=== PATIENT | female | born 1985 | race Asian ===

== ENCOUNTER 2016-12-29 10:00 | Inpatient (IN) | payer BC, OTHER ==
[~2016-12-29 10:00] MED LIST: AMPICILLIN - 2 GM in SODIUM CHLORIDE 100 ML IVPB ONE; CITRIC ACID/SODIUM CITRATE 30 ML UNIT-DOSE CUP PO ONE; ELECTROLYTE-148 SOLN 500 ML IV ONE
[2016-12-29] MEDS ORDERED: ELECTROLYTE-148 SOLN 1,000 ML IV SCH ×2 (10:30→14:45)
[2016-12-29] MEDS ORDERED: TUBERCULIN PPD 5 TU/0.1ML SYRINGE (IN PATIENT USE ONLY) ID ONE (11:00)
[2016-12-29 11:03] VITALS: BMI 35.4
--- NOTE | 2016-12-29 11:04 | HP ---
Past Medical History - Admission Chief Complaint: Labor History of Present Illness: 31 yo EDC 01/05/17 ega 39 week admitted due to labor no ROM bleeding pt with GBS positive and hypothyroid x2 Spont ab x 1 History Source: Patient - Past Medical History ...: 4 ...Para: 2 ...Spon : 1 Endocrine: Yes: Hypothyroidism (on synthroid 50mcg/day throughout ) - Past Surgical History Past Surgical History: Yes: None Hx Myomectomy: No Hx Transabdominal Cerclage: No - Smoking History Smoking history: Never smoked Have you smoked in the past 12 months: No - Alcohol/Substance Use Hx Alcohol Use: No Home Medications - Allergies Allergies/Adverse Reactions: Allergies Allergy/AdvReac Type Severity Reaction Status Date / Time No Known Allergies Allergy Verified 06/29/14 21:23 - Home Medications Home Medications: Ambulatory Orders Levothyroxine Sodium [Unithroid] 50 mcg PO DAILY 05/11/15 Vit/Iron Fumarate/FA [ Tablet] 1 tablet PO DAILY 05/11/15 Review of Systems - Review of Systems Constitutional: reports: No Symptoms Eyes: reports: No Symptoms HENT: reports: No Symptoms Neck: reports: No Symptoms Cardiovascular: reports: No Symptoms Respiratory: reports: No Symptoms Gastrointestinal: reports: No Symptoms Genitourinary: reports: No Symptoms Breasts: reports: No Symptoms Reported Musculoskeletal: reports: No Symptoms Integumentary: reports: No Symptoms Neurological: reports: No Symptoms Endocrine: reports: No Symptoms Hematology/Lymphatic: reports: No Symptoms Psychiatric: reports: No Symptoms Physical Exam - Maternity Constitutional: Yes: Well Nourished, No Distress, Obese - Abdominal Exam/OB Fundal Height: 40 Number of Fetuses: Single Presentation: Vertex Contractions: Yes Regularity: Regular Category: I Accelerations: Non-Uniform - Vaginal Exam/OB Dilatation (cm): 5-6 Effacement (%): 80 Amniotic Membrane Status: Intact Presentation: Vertex/Position - Physical Exam Musculoskeletal: Yes: WNL Edema: No Integumentary: Yes: WNL Hemorrhage Risk Assessment - Risk Factors Risk Score: 0 Risk Level: Low Risk Problem List - Problems (1) Term Code(s): Z34.80 - ENCOUNTER FOR SUPRVSN OF NORMAL , UNSP TRIMESTER (2) Labor established Code(s): WWR8452 - Assessment/Plan iup at 39 weeks Cat 1 Labor obesity Plan admit to LD continue present management
[2016-12-29 11:05] LABS: BASOPHIL 0.6 % (0-2.0); EOSINOPHIL 0.2 % (0-4.5); MCH 25.4 pg (25.7-33.7); MCHC 31.9 g/dl (32.0-36.0); MEAN CELL VOLUME 79.6 fl (80-96); MEAN PLT VOLUME 9.2 fl (7.5-11.1); NEUTROPHILS 78.8 % (42.8-82.8); PLATELET COUNT 206 K/MM3 (134-434); RDW 15.1 % (11.6-15.6); WHITE BLOOD COUNT 12.3 K/mm3 (4.0-10.0)
[2016-12-29 11:25] LABS: INR 0.92 (0.82-1.09); PROTHROMBIN TIME (PATIENT) 10.1 SEC (9.98-11.88)
[2016-12-29 11:27] LABS: ANION GAP 10 (8-16); CALCIUM 8.6 mg/dL (8.5-10.1); CO2 23 mmol/L (21-32); CREATININE 0.7 mg/dL (0.55-1.02); GLUCOSE,RANDOM 76 mg/dL (74-106)
[2016-12-29 11:28] LABS: ACTIVATED PTT 24.8 SECONDS (26.9-34.4)
[2016-12-29] MEDS: AMPICILLIN - 1 GM in SODIUM CHLORIDE 100 ML IVPB SCH ×2 (14:00→18:32)
[2016-12-29] MEDS ORDERED: METHYLERGONOVINE MALEATE 0.2 MG/1 ML AMP IM PRN (14:41)
[2016-12-29] MEDS ORDERED: WITCH HAZEL 50% (TUCKS) 40 PAD/JAR PAD TP PRN (14:41)
[2016-12-29] MEDS ORDERED: BENZOCAINE 20% 57 GM BOTTLE TP PRN (14:41)
[2016-12-29] MEDS ORDERED: IBUPROFEN 600 MG TABLET (FP) PO PRN (14:41)
[2016-12-29] MEDS ORDERED: ACETAMINOPHEN 325 MG TABLET (FP) PO PRN (14:41)
[2016-12-29] MEDS ORDERED: BISACODYL 10 MG SUPP.RECT RC PRN (14:41)
[2016-12-29] MEDS ORDERED: BENZOCAINE 28 GM HEMORRHOIDAL OINTMENT TP PRN (14:41)
[2016-12-29] MEDS ORDERED: D5W-LR W/ 20 UNITS OXYTOCIN 1,000 ML IV SCH (14:45)
[2016-12-29] MEDS ORDERED: FENTANYL/BUPIVACAINE/NS/PF - PCEA - 50 ML DISP.SYRIN EP SCH (15:00)
--- NOTE | 2016-12-29 15:06 | PN ---
Ante-Partal Exam - Subjective Subjective: Pt sp epidural Vital Signs: Vital Signs Temperature 98.0 F 12/29/16 14:00 Pulse Rate 70 12/29/16 14:00 Respiratory Rate 18 12/29/16 14:00 Blood Pressure 124/53 12/29/16 14:00 O2 Sat by Pulse Oximetry (%) Bleeding: No Headache: No Visual changes: No Right upper quadrant pain: No - Contractions Contractions: Yes - Exam during Labor Category: I Monitor Accelerations: Present Monitor Decelerations: Early Exam: Vaginal Dilatation (cm): 8 Effacement (%): 100 Amniotic Membrane Status: Ruptured Amniotic Fluid: Clear Presentation: Vertex Station: -1 - Assessment/Plan Assessment/Plan: iup at 39 weeks labor Plan anticipate vaginal delivery
[2016-12-29 17:02] LABS: ARTERIAL BLD GAS O2 SATURATION 25.7 % (90-98.9); ARTERIAL BLOOD GAS BASE EXCESS -0.6 meq/l (-2-2); ARTERIAL BLOOD GAS HCO3 26.3 meq/L (22-26)
[2016-12-29 17:04] LABS: ARTERIAL BLOOD GAS PO2 18.2 mmHg (80-100); PT. ON O2? NO
[2016-12-29 17:05] LABS: VENOUS BLOOD GAS HCO3 23.3 meq/L (19-25); VENOUS PH 7.39 (7.32-7.42)
--- NOTE | 2016-12-30 06:34 | PN ---
Delivery - Delivery Vaginal Delivery: No Problems Type of Anesthesia: Epidural Episiotomy/Laceration: 1st degree EBL (cc): 300 Delivery, Single - Stages of Labor Date 1st Stage Initiatied: 12/29/16 Time 1st Stage Initiated: 06:00 Date 2nd Stage Initiated: 12/29/16 Time 2nd Stage Initiated: 16:00 Date of Delivery: 12/29/16 Time of Delivery: 16:21 Time Placenta Delivered: 16:30 - Condition of Infant Branch Office Manager/Lens Edger Present: No Gender: Male Weight: 6 lb 10 oz Position: Left, OA Total Hours ROM (Hrs/Mins): 07/07 - 1 Minute Total Score: 9 5 Minutes Total Score: 9 - Feeding Plan Initial Plan: Elected not to breastfeed exclusively throughout hospitalization
[2016-12-30 08:04] LABS: BASOPHIL 0.3 % (0-2.0); EOSINOPHIL 0.6 % (0-4.5); MCH 25.6 pg (25.7-33.7); MCHC 31.8 g/dl (32.0-36.0); MEAN CELL VOLUME 80.7 fl (80-96); MEAN PLT VOLUME 9.4 fl (7.5-11.1); NEUTROPHILS 73.6 % (42.8-82.8); PLATELET COUNT 196 K/MM3 (134-434); RDW 15.1 % (11.6-15.6); WHITE BLOOD COUNT 13.2 K/mm3 (4.0-10.0)
[2016-12-30] MEDS: PRENATAL VITAMINS W/ FOLIC ACID TABLET (FP) PO SCH (09:25)
[2016-12-30] MEDS ORDERED: DIPHTH,PERTUSS(ACELL),TET 0.5 ML DISP.SYRIN IM ONE (10:00)
[2016-12-30] MEDS ORDERED: SENNOSIDES/DOCUSATE COMBO (SENNA PLUS) TABLET (UD) PO PRN (22:00)
--- NOTE | 2016-12-31 05:21 | PN ---
Post Note - Post Date of Delivery: 12/29/16 Post Day: 1 Vital Signs: Vital Signs - 24 hr 12/30/16 12/30/16 12/30/16 05:50 07:51 13:11 Temperature 98.8 F 98.1 F 98.6 F Pulse Rate 75 84 85 Respiratory 18 20 20 Rate Blood Pressure 105/52 92/55 96/63 12/30/16 22:00 Temperature 98.7 F Pulse Rate 78 Respiratory 20 Rate Blood Pressure 110/60 Labs: Laboratory Results - last 24 hr 12/30/16 06:00 WBC 13.2 H RBC 4.67 Hgb 12.0 Hct 37.7 MCV 80.7 MCH 25.6 L MCHC 31.8 L RDW 15.1 Plt Count 196 MPV 9.4 Neutrophils % 73.6 Lymphocytes % 18.5 D Monocytes % 7.0 Eosinophils % 0.6 D Basophils % 0.3 - Subjective Subjective: No Complaints - Objective Afebrile: No Breast: Not engorged Abdomen: Soft, Non-tender Uterus: Fundus firm, Non-tender Vagina: Scant lochia Extremities: Non-tender - Assessment/Plan (1) Term Assessment: S/P Normal Plan: Routine Care
--- NOTE | 2016-12-31 05:22 | DS ---
Physical Exam-GARNETT FEEDER Vital Signs: Vital Signs Temperature 98.7 F 12/30/16 22:00 Pulse Rate 78 12/30/16 22:00 Respiratory Rate 20 12/30/16 22:00 Blood Pressure 110/60 12/30/16 22:00 O2 Sat by Pulse Oximetry (%) 100 12/29/16 16:30 Constitutional: Yes: Well Nourished, No Distress Cardiovascular: Yes: WNL Respiratory: Yes: WNL Gastrointestinal: Yes: WNL ....Post : Yes: Uterus firm, Uterus non-tender Edema: Yes Edema: LLE: Trace, RLE: Trace Labs: CBC, BMP 12/30/16 06:00 12/29/16 10:45 Delivery - Delivery Vaginal Delivery: No Problems Type of Anesthesia: Epidural Episiotomy/Laceration: 1st degree EBL (cc): 300 Delivery, Single - Stages of Labor Date 1st Stage Initiatied: 12/29/16 Time 1st Stage Initiated: 06:00 Date 2nd Stage Initiated: 12/29/16 Time 2nd Stage Initiated: 16:00 Date of Delivery: 12/29/16 Time of Delivery: 16:21 Time Placenta Delivered: 16:30 - Condition of Remarketing Manager/Director Of Research And Development Present: No Infant Gender: Male Weight: 6 lb 10 oz Position: Left, OA Total Hours ROM (Hrs/Mins): 07/07 - 1 Minute Total Score: 9 5 Minutes Total Score: 9 - Feeding Plan Initial Plan: Elected not to breastfeed exclusively throughout hospitalization Discharge Summary Reason For Visit: LABOR Current Active Problems Labor established (Acute) Procedures: Principal: Normal vaginal delivery Condition: Good - Instructions Diet, Activity, Other Instructions: Physical activity Resume your normal everyday activity as tolerated no heavy lifting or exercise until seen by your surgeon. You may walk unlimited lisbet of and climb stairs. You may resume driving the car when you feel safe and comfortable behind the wheel. No sexual activity as instructed. Wound care If you have a bandage, leave it on, and keep dry for 48-72 hours. After that time discard the outer bandage. If they are tapes on the skin under the out of bandage leave them in place. They will peel off in the next 7 to 10 days. Do Not Peel them off. You may shower the day after surgery. If there are tapes present on the skin, you may shower over them. Diet There are no dietary restrictions. Eat healthy, high-fiber foods. Drink 6 to 8 glasses of liquid each day. This will assist in keeping your bowels are regular. Pain management You may take Tylenol or acetaminophen or Ibuprofen (for example, Motrin, Advil etc.) from my pain prescription medication is ordered should be taken as prescribed for moderate to severe pain. Call MD for any of the following: Severe pain not relieved by medication Fever of 101 or higher Excessive bleeding or drainage on dressing Inability to urinate Referrals: Olga Llanos MD [Staff Physician] - Disposition: HOME - Home Medications Comprehensive Discharge Medication List: Ambulatory Orders Levothyroxine Sodium [Unithroid] 50 mcg PO DAILY 05/11/15 Vit/Iron Fumarate/FA [ Tablet] 1 tablet PO DAILY 05/11/15
[2016-12-31] MEDS: PRENATAL VITAMINS W/ FOLIC ACID TABLET (FP) PO SCH (09:33)
[2016-12-31 10:45] VITALS: BP 118/71; PULSE 66; TEMP 97.8
== END 2016-12-31 10:20 | disposition home or self-care (01) | DRG 775 ==
LOC: JLDR 10:00 → J3W 17:57
PROVIDERS: ADMIT Obstetrics & Gynecology; ATTEND Obstetrics & Gynecology
PROC: 0HQ9XZZ Repair Perineum Skin, External Approach (ICD-10-PCS; principal; 2016-12-29)
PROC: 10E0XZZ Delivery of Products of Conception, External Approach (ICD-10-PCS; 2016-12-29)
DX: O99.284 Endocrine, nutritional and metabolic diseases complicating childbirth (principal); Z37.0 Single live birth; E03.8 Other specified hypothyroidism; O70.0 First degree perineal laceration during delivery; O99.214 Obesity complicating childbirth; E66.8 Other obesity; Z68.35 Body mass index [BMI] 35.0-35.9, adult; O99.824 Streptococcus B carrier state complicating childbirth; Z3A.39 39 weeks gestation of pregnancy
CPT/HCPCS: 36415; 36600; 59409; 80048; 82803; 85025; 85610; 85730; 86593; 86850; 86900; 86901; 90715

== ENCOUNTER 2018-03-26 08:39 | Day surgery (SDC) | payer BC, OTHER ==
[2018-03-23 16:57] VITALS: BMI 34.7
[2018-03-26] MEDS ORDERED: MIDAZOLAM HCL 2 MG/2 ML SINGLE DOSE VIAL ONE (09:37)
--- NOTE | 2018-03-26 09:56 | HP ---
History & Physical Update - History History: No Change - Physical Physical: No Change - Assessment Assessment: No Change - Plan Plan: No Change (No change in HP)
[2018-03-26] MEDS ORDERED: ACETAMINOPHEN 325 MG TABLET (FP) PO PRN (09:57)
[2018-03-26] MEDS ORDERED: IBUPROFEN 400 MG TABLET (FP) PO PRN (09:57)
--- NOTE | 2018-03-26 10:01 | OP ---
Operative Note - Note: Operative Date: 03/26/18 Pre-Operative Diagnosis: submucosal myoma. menorrhagia Operation: Hysteroscopic myomectomy. Suction DC Post-Operative Diagnosis: Same as Pre-op Surgeon: Olga Llanos Anesthesia: General Estimated Blood Loss (mls): 40 Operative Report Dictated: Yes
[2018-03-26] MEDS ORDERED: DEXAMETHASONE SOD PHOSPHATE 4 MG/1 ML VIAL ONE (10:32)
[2018-03-26] MEDS ORDERED: ceFAZolin SODIUM 1 GM VIAL IVPB ONE (10:36)
[2018-03-26] MEDS ORDERED: ceFAZolin SODIUM 1 GM VIAL ONE (10:36)
[2018-03-26] MEDS ORDERED: KETOROLAC TROMETHAMINE 30 MG/1 ML VIAL ONE (10:58)
[2018-03-26] MEDS ORDERED: ONDANSETRON 4 MG/2 ML VIAL IVPUSH PRN (11:15)
[2018-03-26] MEDS ORDERED: oxyCODONE HCL 5 MG TABLET PO PRN (11:15)
[2018-03-26] MEDS ORDERED: LACTATED RINGERS SOLUTION 1,000 ML IV SCH (11:15)
[2018-03-26 13:10] VITALS: TEMP 97.5
[2018-03-26 14:00] VITALS: BP 107/63; PULSE 71
--- NOTE | 2018-03-26 21:13 | OP ---
DATE OF OPERATION: 03/26/2018 PREOPERATIVE DIAGNOSIS: Submucosal myoma, menorrhagia. OPERATION: Hysteroscopic myomectomy, suction dilation and curettage. POSTOPERATIVE DIAGNOSIS: Submucous myoma, menorrhagia. SURGEON: Olga Llanos MD ANESTHESIA: General. ESTIMATED BLOOD LOSS: 40 mL. DESCRIPTION OF PROCEDURE: The patient was taken to the operating room and placed in dorsal lithotomy position, prepped and draped in the usual sterile fashion. A time-out was performed in accordance with hospital regulation. Speculum was placed in the vagina. Anterior lip of the cervix was grasped with a single-tooth tenaculum. The cervix was then dilated to accommodate the operative hysteroscope. The operative hysteroscope was inserted, and an anterior type one myoma was seen in the endometrial cavity. Cautery and cutting of the anterior portion of the uterus was done. Shaving of the myoma was done to have a normal endometrial cavity. The cavity was concave due to the myoma. Suction dilation and curettage was then performed. Contents were all removed and submitted to Pathology. Hemostasis was achieved. Estimated blood loss 40 mL. OLGA LLANOS M.D. [id number]
--- NOTE | 2018-03-27 13:28 | PATH ---
Surgical Pathology Report Patient Name: BETH TOLENTINO [facility]. Rec. #: [id number] /Age/Gender: 1985 (Age: 32) / F Account: [id number] Location: [facility] SURGICAL Taken: 03/26/2018 Received: 03/26/2018 Reported: 03/27/2018 Physicians: Olga Llanos M.D. Specimen(s) Received SUBMUCOSAL MYOMA Clinical History Endometrial polyps Final Diagnosis UTERUS, SUBMUCOSAL MYOMAS, HYSTEROSCOPIC MYOMECTOMY, SUCTION DILATION AND CURETTAGE: FRAGMENTS OF ENDOMETRIAL POLYP AND BROAD BUNDLES OF SMOOTH MUSCLE CONSISTENT WITH SUBMUCOSAL LEIOMYOMA. SCANT BENIGN CERVICAL SQUAMOUS MUCOSA. Electronically Signed Ewelina Figueroa M.D. Gross Description Received in formalin labeled "submucosal myomas" are multiple fragments of pink-farah focally fibrous tissue consistent with fibroids measuring 3 x 2 x 1 cm in aggregate. Entire specimen submitted in 2 cassettes. MLSZ/03/26/2018 sanjasmina/03/26/2018
== END 2018-03-26 14:00 | disposition home or self-care (01) ==
LOC: JASU-SURG 08:39
PROVIDERS: ATTEND Obstetrics & Gynecology
PROC: 0UB98ZZ Excision of Uterus, Via Natural or Artificial Opening Endoscopic (ICD-10-PCS; principal; 2018-03-26 10:00)
PROC: 0UDB7ZX Extraction of Endometrium, Via Natural or Artificial Opening, Diagnostic (ICD-10-PCS; 2018-03-26 10:00)
PROC: 0UJD8ZZ Inspection of Uterus and Cervix, Via Natural or Artificial Opening Endoscopic (ICD-10-PCS; 2018-03-26 10:00)
DX: N92.0 Excessive and frequent menstruation with regular cycle (principal); D25.0 Submucous leiomyoma of uterus
CPT/HCPCS: 88305-TC; 94760

== ENCOUNTER 2024-04-24 08:10 | Emergency (ER) | payer OTHER, BC ==
[2024-04-24 08:23] VITALS: BP 140/87; PULSE 90; RESP 18; TEMP 97.7; BMI 38.2
[2024-04-24] MEDS ORDERED: KETOROLAC TROMETHAMINE 30 MG/1 ML VIAL ONE (09:24)
[2024-04-24] MEDS ORDERED: predniSONE 20 MG TABLET (UD) ONE (09:24)
[2024-04-24] MEDS: KETOROLAC TROMETHAMINE 30 MG/1 ML VIAL IM ONE (09:32)
[2024-04-24] MEDS: predniSONE 20 MG TABLET (UD) PO ONE (09:32)
== END 2024-04-24 09:34 | disposition home or self-care (01) ==
LOC: JERFT 08:10
PROC: 3E0133Z Introduction of Anti-inflammatory into Subcutaneous Tissue, Percutaneous Approach (ICD-10-PCS; principal; 2024-04-24)
DX: M79.641 Pain in right hand (principal); M79.2 Neuralgia and neuritis, unspecified; R20.2 Paresthesia of skin
CPT/HCPCS: 99284-25